=== PATIENT | female | born 1955 ===

== ENCOUNTER → 2024-04-20 11:19 | Outpatient (REF) | payer OTHER, SELFPAY | LOC: HWRAD 11:19 | PROVIDERS: ATTENDING PHYSICIAN Internal Medicine Endocrinology, Diabetes & Metabolism; FAMILY PHYSICIAN Family Medicine | DX: E05.90 Thyrotoxicosis, unspecified without thyrotoxic crisis or storm (principal) | CPT/HCPCS: 76536 ==

== ENCOUNTER 2024-11-14 06:06 | Day surgery (SDC) | payer OTHER, SELFPAY ==
[2024-10-31 11:20] LABS: APTT 29.2 Sec (23.4-35.0); INR 0.91; PT 12.6 Sec (11.4-14.6)
[2024-10-31 11:30] LABS: Hematocrit 41.6 % (37.0-47.0); Hemoglobin 13.7 g/dL (12.0-16.0); Mean Corp Hgb Conc. 32.9 g/dL (33.0-37.0); Mean Corpuscular Volume 88.1 fL (81.0-99.0); Mean Platelet Volume 8.8 fL (7.4-10.4); Platelet Count 410 10^3/uL (130-400); Red Blood Cell Count 4.72 10^6/uL (4.20-5.40); White Blood Cell Count 8.2 10^3/uL (4.8-10.8)
[2024-10-31 11:43] LABS: ALT (SGPT) 21 U/L (0-35); AST (SGOT) 20 U/L (14-36); Albumin 4.2 g/dl (3.5-5.0); Alkaline Phosphatase 96 U/L (38-126); Blood Urea Nitrogen 16 mg/dl (7-17); Calcium 9.5 mg/dl (8.4-10.2); Carbon Dioxide 27 mmol/L (22-30); Chloride 104 mmol/L (98-107); Glucose 102 mg/dl (70-99); Potassium 4.7 mmol/L (3.5-5.1); Sodium 139 mmol/L (135-145); Total Bilirubin 0.8 mg/dl (0.2-1.3); Total Protein 7.1 g/dl (6.3-8.2); eGFR > 60.00
[2024-10-31 14:17] VITALS: BMI 23.1
[2024-11-14] VITALS (8 sets, daily range): BP systolic 105–138; BP diastolic 57–79; BMI 23.1
[2024-11-14] MEDS: NEURONTIN 300 MG PO (06:41)
[2024-11-14] MEDS: TYLENOL 1000 MG PO (06:41)
[2024-11-14] MEDS: HEPARIN 5000 UNITS SC (06:42)
[2024-11-14] MEDS: NORMOSOL-R/PLASMALYTE-A 1000 IV (06:42)
--- NOTE | 2024-11-14 08:41 | OR.RPT ---
Operative Report
Operative Report
DATE OF OPERATION: November 14, 2024
PREOPERATIVE DIAGNOSIS: �Hyperthyroidism - E0510
POSTOPERATIVE DIAGNOSIS: Same
SURGEON: Toy Huggins M.D.
OPERATION: �Total Thyroidectomy - 20039
ANESTHESIA: GET
ESTIMATED BLOOD LOSS: 3 cc
DRAINS: None
SPECIMEN: �total thyroid
FINDINGS: none
COMPLICATIONS:� None
PROCEDURE:
The patient was taken to the operating room and placed in the usual supine position. After adequate general endotracheal anesthesia was established, the patient�s neck was extended, prepped, and draped in the typical sterile fashion. A 4 cm
transcervical incision was made two fingerbreadths above the sternal notch. The skin incision was made with the #15 blade, which was taken through the skin into the subcutaneous tissue. The underlying platysma muscle was divided, and subplatysmal
flaps were created superiorly to the thyroid cartilage and inferiorly to the sternal notch. Strap muscles were identified and at the midline.
Attention was turned to the patient�s right thyroid lobe. The right thyroid lobe was mobilized medially. During this process, the right middle thyroid vein and inferior thyroid artery were dissected and ligated with Ligasure. Next, the right
superior pole was taken down by dissecting and transecting the superior pole vessels with a Ligasure. The right thyroid lobe was mobilized medially. During this process, the right recurrent laryngeal nerve was identified and preserved throughout its
entire course. The right superior parathyroid gland was identified and preserved. The right thyroid lobe with isthmus was resected off the trachea and sent to the pathology department.
Next, attention was turned to the patient�s left thyroid lobe. The left thyroid lobe was mobilized medially. During this process, the left middle thyroid vein and inferior thyroid artery were dissected and ligated with Ligasure. Next, the left
superior pole was taken down by dissecting and transecting the superior pole vessels with a Ligasure. The left thyroid lobe was mobilized medially. During this process, the left recurrent laryngeal nerve was identified and preserved throughout its
entire course. The left inferior parathyroid gland was identified and preserved. The left thyroid lobe with isthmus was resected off the trachea and sent to the pathology department.
After obtaining adequate hemostasis, the strap muscle was approximated with #3-0 Vicryl in a running fashion, and platysma muscles were reapproximated with #3-0 Vicryl in an interrupted fashion, and the skin was approximated with #4-0 Monocryl in a
running subcuticular fashion. Steri-strips and sterile dressings were placed. The patient tolerated the procedure well. The final instrument, needle, and sponge counts were correct.
[2024-11-14] MEDS: ROXICODONE 5 MG PO (09:45)
== END 2024-11-14 10:19 | disposition home or self-care (01) ==
LOC: SDS 06:06
PROVIDERS: ATTENDING PHYSICIAN Surgery; FAMILY PHYSICIAN Family Medicine; OTHER PHYSICIAN Student in an Organized Health Care Education/Training Program
DX: E05.00 Thyrotoxicosis with diffuse goiter without thyrotoxic crisis or storm (principal)
CPT/HCPCS: 60240; 88307; 36415; 80053; 85027; 85610; 85730; 93005; C1776